=== PATIENT | female | born 1995 | race Caucasian/White ===

== ENCOUNTER 2016-09-05 17:51 | Emergency (ER) | payer OTHER ==
[~2016-09-05] VITALS: Ht 167.6 cm; Wt 61.2 kg
[~2016-09-05 17:51] MED LIST: ASCA500 PO; CYAN500T PO; PROM25TA9 PO
[2016-09-05 17:54] VITALS: TEMP 36.9; Ht 167.6 cm; Wt 61.2 kg
[2016-09-05] MEDS ORDERED: KETOROLAC TROMETHAMINE 30 MG/ML VIAL IV STA (18:24)
[2016-09-05] MEDS ORDERED: SODIUM CHLORIDE 0.9% 1000ML 1,000 ML IV STA (18:24)
[2016-09-05] MEDS ORDERED: WELLBUTRIN PO (18:35)
[2016-09-05 18:54] LABS: BASO % 0.5 %; BASO ABS # 0.03 K/uL (0-0.2); COMPLETE YES; EOS % 7.3 %; HEMATOCRIT 38.7 % (37-47); IG% 0.2 %; LYMPH % 32.7 %; LYMPH ABS # 1.83 K/uL (1.2-3.4); MEAN CELL VOLUME 84.7 fL (80-100); MEAN CORPUSCULAR HEMOGLOBIN 28.4 pg (25-34); MEAN CORPUSCULAR HGB CONC 33.6 g/dl (32-36); MEAN PLATELET VOLUME 10.7 fL (7.4-10.4); MONO % 8.4 %; NEUT % 50.9 %; PLATELET COUNT 235 K/uL (130-400); RED BLOOD COUNT 4.57 M/uL (4.2-5.4)
[2016-09-05 19:04] LABS: URINE APPEARANCE CLEAR (CLEAR); URINE BILIRUBIN NEG (NEG); URINE COLOR YELLOW; URINE NITRITE NEG (NEG); URINE PH 6.5 (4.5-7.5); UROBILINOGEN NEG (NEG); ZZUR CULT IF INDIC CLEAN CATCH NO
[2016-09-05 19:09] LABS: MANUAL MICROSCOPIC REQUIRED? NO; REVIEW REQ? NO
[2016-09-05 19:13] LABS: BUN/CREATININE RATIO 9.2 (10-20); CALCIUM 9.1 mg/dl (8.5-10.1); CREATININE 1.1 mg/dl (0.60-1.20)
[2016-09-05 19:16] LABS: ALB/GLOB RATIO 1.2 (0.9-2)
--- NOTE | 2016-09-05 20:18 | DIAGNOSTIC IMAGING REPORT ---
PELVIC ULTRASOUND CLINICAL HISTORY: Severe pelvic pain. Positive test. COMPARISON STUDY: Pelvic ultrasound July 28, 2015. TECHNIQUE: Transabdominal and transvaginal sonography of the pelvis was performed. FINDINGS: The uterus measures 7.2 x 3.8 x 5.1 cm. The endometrium measures 1.1 cm in thickness. No intrauterine gestational sac is identified. Trace fluid is noted within the pelvis. The right ovary measures 4.4 x 2 x 2.2 cm and contains a 2.4 cm hypoechoic lesion with increased vascularity of the adjacent ovarian tissue. This suggests a corpus luteal cyst. The left ovary is normal, measuring 2.4 x 1.6 x 1.5 cm. Color flow is identified within each ovary. IMPRESSION: 1. No intrauterine gestational sac identified. Endometrial thickness of 1.1 cm. Given the positive test, differential considerations include a normal early intrauterine , missed spontaneous and sonographically occult ectopic . Close clinical follow-up, including serial beta hCG levels, is recommended. 2. 2.4 cm right ovarian lesion suggestive of a corpus luteal cyst. 3. Small amount of simple appearing fluid within the pelvis. Electronically signed by: Lazaro Monroy M.D. 09/05/2016 8:17 PM Dictated Date/Time: 09/05/2016 8:11 PM
--- NOTE | 2016-09-05 21:14 | EMERGENCY ROOM VISIT NOTE ---
History First contact with patient: 18:09 Chief Complaint: PELVIC PAIN Stated Complaint: SEVERE PELVIC PAIN History of Present Illness The patient is a 21 year old female who presents to the Emergency Room with complaints of severe pelvic pain for the past few days. The patient states that she has had a dull pain in her lower abdomen with movement and bending over for the past few days. She states she has had ovarian cysts in the past and this feels similar to previous episodes of ovarian cysts. She rates her discomfort an 8/10. She does report increased frequency of urination, but denies other urinary symptoms. She denies any unusual vaginal discharge or bleeding. Her last menstrual period was 4 weeks ago. She states she has made an appointment with [facility], but has not had seen them. She denies any nausea, vomiting, chest pain, shortness of breath, fevers or chills. Review of Systems A complete 10-point Review of Systems was discussed with the patient, with pertinent positives and negatives listed in the History of Present Illness. All remaining Review of Systems questions can be considered negative unless otherwise specified. Past Medical/Surgical History Medical Problems: (1) Abdominal pain (2) Abdominal pain (3) Abdominal pain (4) Cervicitis (5) Flank pain (6) Increased urinary frequency (7) Kidney stones (8) Kidney stones (9) Ovarian cyst (10) Pelvic pain (11) Renal colic on left side (12) Right ovarian cyst (13) Right ovarian cyst (14) Tick bite (15) Urinary tract infection (16) UTI (urinary tract infection) Surgical Problems: (1) History of appendectomy Family History Cancer Diabetes mellitus Hypertension Kidney disease Kidney stones Social History Smoking Status: Light Tobacco Smoker Alcohol Use: none Marital Status: in relationship Housing Status: lives with significant other Occupation Status: unemployed Current/Historical Medications Scheduled [Wellbutrin], 1 TAB PO BID Allergies Coded Allergies: Penicillins (Verified Allergy, Unknown, ., 09/05/16) Physical Exam Vital Signs Date Time Temp Pulse Resp B/P Pulse Ox O2 Delivery O2 Flow Rate FiO2 09/05/16 21:18 78 18 120/63 100 09/05/16 20:05 83 20 122/58 96 Room Air 09/05/16 17:54 36.9 88 17 124/75 100 Room Air Physical Exam VITALS: Vitals are noted on the nurse's note and reviewed by myself. Vital signs stable. GENERAL: This is a 21-year-old female, in no acute distress, nondiaphoretic, well-developed well-nourished. SKIN: Capillary reflex less than 2 seconds. HEENT: Normocephalic. PERRLA. EOMI. Nares patent. Mucous membranes moist. Neck is supple without nuchal rigidity. HEART: Regular rate and rhythm without murmurs gallops or rubs. LUNGS: Clear to auscultation bilaterally without wheezes, rales or rhonchi. ABDOMEN: Positive bowel sounds x 4. Soft, nontender to palpation. PELVIC: Small amount of whitish discharge within the vaginal vault. Cervical os is closed. No bleeding. NEURO: Patient was alert and oriented to person place and time. Medical Decision & Procedures ER Provider Diagnostic Interpretation: PELVIC ULTRASOUND CLINICAL HISTORY: Severe pelvic pain. Positive test. COMPARISON STUDY: Pelvic ultrasound July 28, 2015. TECHNIQUE: Transabdominal and transvaginal sonography of the pelvis was performed. FINDINGS: The uterus measures 7.2 x 3.8 x 5.1 cm. The endometrium measures 1.1 cm in thickness. No intrauterine gestational sac is identified. Trace fluid is noted within the pelvis. The right ovary measures 4.4 x 2 x 2.2 cm and contains a 2.4 cm hypoechoic lesion with increased vascularity of the adjacent ovarian tissue. This suggests a corpus luteal cyst. The left ovary is normal, measuring 2.4 x 1.6 x 1.5 cm. Color flow is identified within each ovary. IMPRESSION: 1. No intrauterine gestational sac identified. Endometrial thickness of 1.1 cm. Given the positive test, differential considerations include a normal early intrauterine , missed spontaneous and sonographically occult ectopic . Close clinical follow-up, including serial beta hCG levels, is recommended. 2. 2.4 cm right ovarian lesion suggestive of a corpus luteal cyst. 3. Small amount of simple appearing fluid within the pelvis. Laboratory Results 09/05/16 18:48 Red Blood Count 4.57, Mean Corpuscular Volume 84.7, Mean Corpuscular Hemoglobin 28.4, Mean Corpuscular Hemoglobin Concent 33.6, Mean Platelet Volume 10.7, Neutrophils (%) (Auto) 50.9, Lymphocytes (%) (Auto) 32.7, Monocytes (%) (Auto) 8.4, Eosinophils (%) (Auto) 7.3, Basophils (%) (Auto) 0.5, Neutrophils # (Auto) 2.85, Lymphocytes # (Auto) 1.83, Monocytes # (Auto) 0.47, Eosinophils # (Auto) 0.41, Basophils # (Auto) 0.03 09/05/16 18:48 Test 09/05/16 18:45 09/05/16 18:48 09/05/16 18:53 Human Chorionic Gonadotropin, Quant 344 mIU/mL White Blood Count 5.60 K/uL (4.8-10.8) Red Blood Count 4.57 M/uL (4.2-5.4) Hemoglobin 13.0 g/dL (12.0-16.0) Hematocrit 38.7 % (37-47) Mean Corpuscular Volume 84.7 fL (80-100) Mean Corpuscular Hemoglobin 28.4 pg (25-34) Mean Corpuscular Hemoglobin Concent 33.6 g/dl (32-36) Platelet Count 235 K/uL (130-400) Mean Platelet Volume 10.7 fL (7.4-10.4) Neutrophils (%) (Auto) 50.9 % Lymphocytes (%) (Auto) 32.7 % Monocytes (%) (Auto) 8.4 % Eosinophils (%) (Auto) 7.3 % Basophils (%) (Auto) 0.5 % Neutrophils # (Auto) 2.85 K/uL (1.4-6.5) Lymphocytes # (Auto) 1.83 K/uL (1.2-3.4) Monocytes # (Auto) 0.47 K/uL (0.11-0.59) Eosinophils # (Auto) 0.41 K/uL (0-0.5) Basophils # (Auto) 0.03 K/uL (0-0.2) RDW Standard Deviation 40.4 fL (36.4-46.3) RDW Coefficient of Variation 13.1 % (11.5-14.5) Immature Granulocyte % (Auto) 0.2 % Immature Granulocyte # (Auto) 0.01 K/uL (0.00-0.02) Anion Gap 6.0 mmol/L (3-11) Est Creatinine Clear Calc Drug Dose 75.7 ml/min Estimated GFR () 83.1 Estimated GFR (Non- 71.7 BUN/Creatinine Ratio 9.2 (10-20) Calcium Level 9.1 mg/dl (8.5-10.1) Total Bilirubin 0.4 mg/dl (0.2-1) Aspartate Amino Transf (AST/SGOT) 7 U/L (15-37) Alanine Aminotransferase (ALT/SGPT) 15 U/L (12-78) Alkaline Phosphatase 65 U/L (45-117) Total Protein 7.5 gm/dl (6.4-8.2) Albumin 4.1 gm/dl (3.4-5.0) Globulin 3.4 gm/dl (2.5-4.0) Albumin/Globulin Ratio 1.2 (0.9-2) Urine Color YELLOW Urine Appearance CLEAR (CLEAR) Urine pH 6.5 (4.5-7.5) Urine Specific Venus 1.020 (1.000-1.030) Urine Protein NEG (NEG) Urine Glucose (UA) NEG (NEG) Urine Ketones NEG (NEG) Urine Occult Blood NEG (NEG) Urine Nitrite NEG (NEG) Urine Bilirubin NEG (NEG) Urine Urobilinogen NEG (NEG) Urine Leukocyte Esterase NEG (NEG) Urine Test POS (NEG) Medications Administered Medications (Trade) Dose Ordered Sig/[place] Route Start Time Stop Time Status Last Admin Dose Admin Sodium Chloride (Nss 1000ml) 1,000 ml @ 999 mls/hr Q1H1M STAT IV 09/05/16 18:24 09/05/16 19:24 DC 09/05/16 18:59 999 MLS/HR Medical Decision Differential diagnosis includes ovarian cyst, ovarian torsion, ectopic , appendicitis, urinary tract infection, PID, gastroenteritis, among others. The patient was evaluated as above. Labs were drawn and IV access was obtained. Imaging studies were performed and read by radiology as above. The patient was medicated with 1 L normal saline solution. The patient was reassessed multiple times during their stay in the emergency department and remained in stable condition. The patient is a 21-year-old female who presents today complaining of pelvic pain. Labs revealed no leukocytosis, anemia or concerning electrolyte abnormalities. Urinalysis was not suggestive of infection. Urine was positive. Patient was informed of her positive test. As she has been complaining of pelvic pain, an ultrasound was also performed. Ultrasound was read by radiology and showed findings consistent with an early , but could not rule out miscarriage or ectopic . Beta hCG was 344. The patient will need to 48 hour follow-up. She was informed of this. I did speak with case management, who will arrange follow-up with [facility]. The patient is unable to make that appointment, she will return here for repeat ultrasound and beta-hCG. She will return sooner for worsening symptoms. Based on the patient's presentation, lab results, and imaging studies, I feel the patient is stable for outpatient treatment. The patient's case was reviewed with Dr. Barrett, ED attending physician, who agreed with my assessment and treatment plan. Discharge instructions were reviewed with the patient. The patient verbalized understanding of my assessment and treatment plan and was discharged home in good condition. Impression Primary Impression: Pelvic pain Additional Impression: Departure Information Dispostion Home / Self-Care Condition GOOD Referrals Pablo Waterman, D.O. (PCP) Saturnino Sierra MD Patient Instructions My [facility] Additional Instructions You had a positive test today. You do need a follow-up with [facility] in 48 hours for further testing. If they are not able to see you in 48 hours, you should return to the emergency department for follow-up. Tylenol as needed for pain. You should begin taking a vitamin. Return to the emergency room with any worsening abdominal pain, vaginal bleeding , or any other new/concerning symptoms. Problem Qualifiers Additional Impression: Weeks of gestation: less than 8 weeks Qualified Codes: Z3A.01 - Less than 8 weeks gestation of
[2016-09-05 21:18] VITALS: BP 120/63; PULSE 78; O2SAT 100
--- NOTE | 2016-09-08 14:34 | Pharmacy Progress Note ---
ED Pharmacist Culture FollowUp Date of Service: Sep 08, 2016. Called Armen Salmeron at , spoke with [employer] nurse. Informed of genital culture results. RN noted that she would inform physician of results and that they would take care of any/all follow-up as required. Confirmed that they had access to the [facility] system and could view the specifics and therefore did not fax.
== END 2016-09-05 21:18 | disposition home or self-care (01) ==
LOC: C.EDB 17:53 → C.EDA 21:18
DX: R10.2 Pelvic and perineal pain (principal); Z32.01 Encounter for pregnancy test, result positive; Z3A.01 Less than 8 weeks gestation of pregnancy; Z87.442 Personal history of urinary calculi; N72 Inflammatory disease of cervix uteri; Z84.1 Family history of disorders of kidney and ureter; F17.210 Nicotine dependence, cigarettes, uncomplicated

== ENCOUNTER 2016-09-21 16:30 | Emergency (ER) | payer OTHER ==
[~2016-09-21] VITALS: Ht 167.6 cm; Wt 59.8 kg
[~2016-09-21 16:30] MED LIST changes: -ASCA500 PO; -CYAN500T PO; -PROM25TA9 PO; +WELLBUTRIN PO
[2016-09-21 16:32] VITALS: TEMP 36.8; Ht 167.6 cm; Wt 59.8 kg
[2016-09-21] MEDS ORDERED: SODIUM CHLORIDE 0.9% 1000ML 2,000 ML IV STA (16:37)
[2016-09-21] MEDS ORDERED: PRENTAB26 PO (16:59)
[2016-09-21] MEDS ORDERED: ONDANSETRON 8 MG/54 ML D5W IV STA (17:06)
[2016-09-21 17:18] LABS: BASO % 0.3 %; BASO ABS # 0.02 K/uL (0-0.2); COMPLETE YES; EOS % 1.8 %; IG% 0.1 %; LYMPH ABS # 1.33 K/uL (1.2-3.4); MEAN CELL VOLUME 83.5 fL (80-100); MEAN CORPUSCULAR HEMOGLOBIN 28.8 pg (25-34); MEAN CORPUSCULAR HGB CONC 34.5 g/dl (32-36); MONO % 10.6 %; NEUT % 69.2 %; PLATELET COUNT 233 K/uL (130-400); RED BLOOD COUNT 4.55 M/uL (4.2-5.4); WHITE BLOOD COUNT 7.38 K/uL (4.8-10.8)
[2016-09-21 17:35] LABS: ALT/SGPT 46 U/L (12-78); AST/SGOT 28 U/L (15-37); BLOOD UREA NITROGEN 11 mg/dl (7-18); BUN/CREATININE RATIO 12.4 (10-20); CALCIUM 9.2 mg/dl (8.5-10.1); CARBON DIOXIDE 26 mmol/L (21-32); CHLORIDE 105 mmol/L (98-107); CREATININE 0.88 mg/dl (0.60-1.20); GLUCOSE 97 mg/dl (70-99); POTASSIUM 3.4 mmol/L (3.5-5.1); SODIUM 138 mmol/L (136-145)
[2016-09-21 17:37] LABS: ALKALINE PHOSPHATASE 58 U/L (45-117)
--- NOTE | 2016-09-21 19:44 | DIAGNOSTIC IMAGING REPORT ---
FIRST TRIMESTER ULTRASOUND CLINICAL HISTORY: Vomiting, early . US 09/13 5w 3d gest sac no pole COMPARISON STUDY: ultrasound September 05, 2016. TECHNIQUE: Transabdominal and transvaginal sonography of the pelvis was performed. FINDINGS: An intrauterine gestational sac is noted. Mean sac diameter is 2.15 cm. A pole is noted which measures 0.41 cm. This has cardiac activity with a heart rate of 117 bpm. Estimated gestational age on this exam is 6 weeks and 1 day. In addition, there is a hyperechoic structure adjacent to the pole that measures 0.53 cm. This contains no cardiac activity. This is indeterminate. A normal-appearing yolk sac is not visualized. The right ovary measures 2.5 x 4.6 x 2.2 cm and contains a 2.6 cm suspected corpus luteal cyst. The left ovary measures 2.9 x 1.6 x 1.8 cm. IMPRESSION: 1. Intrauterine gestational sac identified which contains a pole with normal heart rate of 117 bpm. Estimated gestational age is 6 weeks and 1 day. 2. In addition, there is a hyperechoic structure adjacent to the pole that measures 0.53 cm which contains no cardiac activity. This finding is indeterminate and differential considerations include an abnormal appearing yolk sac or an additional intrauterine gestation. Viability cannot be assessed given the early age of . Short-term sonographic follow up is recommended. 3. No normal-appearing yolk sac identified. This is an abnormal but indeterminate finding and should be assessed on subsequent study. 4. Right ovarian corpus luteal cyst. Electronically signed by: Lazaro Monroy M.D. 09/21/2016 7:43 PM Dictated Date/Time: 09/21/2016 7:36 PM
[2016-09-21 21:20] LABS: URINE APPEARANCE CLEAR (CLEAR); URINE BILIRUBIN NEG (NEG); URINE COLOR YELLOW; URINE NITRITE NEG (NEG); URINE SPECIFIC GRAVITY 1.016 (1.000-1.030); UROBILINOGEN NEG (NEG)
[2016-09-21 21:25] LABS: MANUAL MICROSCOPIC REQUIRED? NO; REVIEW REQ? NO
[2016-09-21] MEDS ORDERED: ONDA4TAB10 SL (22:00)
[2016-09-21] MEDS ORDERED: ONDANSETRON HOME PACK 4MG OD TAB PO ONE (22:00)
[2016-09-21 22:26] VITALS: BP 121/71; PULSE 67; O2SAT 98
--- NOTE | 2016-09-22 01:23 | EMERGENCY ROOM VISIT NOTE ---
History Report prepared by Reji: Butch Funez Under the Supervision of: Dr. Deejay Gleason M.D. First contact with patient: 16:37 Chief Complaint: VOMITING Stated Complaint: EXCESSIVE VOMITING, DIZZY History of Present Illness The patient is a 21 year old female who presents to the Emergency Room with complaints of constant nausea and vomiting for the past four days. The patient states that she is currently 6 weeks , and she has been vomiting 15 times per day, and it has been green. She additionally is complaining of abdominal pain, back pain, and intermittent headaches. The patient states that she has been trying many different things, however nothing has worked. The patient states that she came to the ED in August, and she was told to follow up with OB at [facility]. She states that she was following up, and she states that her hormone levels were normal and her ultrasounds were normal. The patient additionally states that she has a history of ovarian cysts. She states that she has another ultrasound appointment on 09/27. Pt denies LOC, fevers, chills, diaphoresis, visual changes, neck pain, chest pain, breathing difficulties, melena, hematochezia, urinary symptoms, vaginal bleeding and discharge, numbness, weakness, lymphadenopathy, rash, or other complaints. Source of History: patient Onset: four days ago Position: other (global) Quality: other (nausea and vomiting) Timing: constant Associated Symptoms: + abdominal pain, + back pain, + headache Review of Systems See HPI for pertinent positives and negatives. A total of ten systems were reviewed and were otherwise negative. Past Medical & Surgical Medical Problems: (1) Abdominal pain (2) Abdominal pain (3) Abdominal pain (4) Cervicitis (5) Flank pain (6) Increased urinary frequency (7) Kidney stones (8) Kidney stones (9) Ovarian cyst (10) Pelvic pain (11) Renal colic on left side (12) Right ovarian cyst (13) Right ovarian cyst (14) Tick bite (15) Urinary tract infection (16) UTI (urinary tract infection) Surgical Problems: (1) History of appendectomy Family History Cancer Diabetes mellitus Hypertension Kidney disease Kidney stones Social History Smoking Status: Never Smoker Alcohol Use: none Marital Status: in relationship Housing Status: lives with significant other Occupation Status: unemployed Current/Historical Medications Scheduled Multivit/Min/Iron/Fol Ac/Pren ( Vitamin), 1 TAB PO DAILY Ondasetron Odt (Zofran Odt), 4 MG SL Q6H Allergies Coded Allergies: Penicillins (Verified Allergy, Unknown, ., 09/05/16) Physical Exam Vital Signs Date Time Temp Pulse Resp B/P Pulse Ox O2 Delivery O2 Flow Rate FiO2 09/21/16 22:26 67 14 121/71 98 09/21/16 20:15 83 14 97/58 99 Room Air 09/21/16 19:32 66 12 90/60 100 Room Air 09/21/16 18:04 60 09/21/16 17:56 66 19 92/50 100 Room Air 09/21/16 16:32 36.8 92 18 126/76 99 Room Air Physical Exam GENERAL: Awake, alert, well-appearing, in no distress HENT: Normocephalic, atraumatic. Oropharynx unremarkable. EYES: Normal conjunctiva. Sclera non-icteric. NECK: Supple. No nuchal rigidity. FROM. No JVD. RESPIRATORY: Clear to auscultation. CARDIAC: Regular rate, normal rhythm. Extremities warm and well perfused. Pulses equal. ABDOMEN: Mild left and right lateral abdominal tenderness. Soft, non-distended. No rebound or guarding. No masses. RECTAL: Deferred. MUSCULOSKELETAL: Chest examination reveals no tenderness. The back is symmetrical on inspection without obvious abnormality. There is no CVA tenderness to palpation. No joint edema. LOWER EXTREMITIES: Calves are equal size bilaterally and non-tender. No edema. No discoloration. NEURO: Normal sensorium. No sensory or motor deficits noted. SKIN: No rash or jaundice noted. Medical Decision & Procedures ER Provider Diagnostic Interpretation: US results as stated below per my review and radiologist interpretation: FIRST TRIMESTER ULTRASOUND CLINICAL HISTORY: Vomiting, early . US 09/13 5w 3d gest sac no pole COMPARISON STUDY: ultrasound September 05, 2016. TECHNIQUE: Transabdominal and transvaginal sonography of the pelvis was performed. FINDINGS: An intrauterine gestational sac is noted. Mean sac diameter is 2.15 cm. A pole is noted which measures 0.41 cm. This has cardiac activity with a heart rate of 117 bpm. Estimated gestational age on this exam is 6 weeks and 1 day. In addition, there is a hyperechoic structure adjacent to the pole that measures 0.53 cm. This contains no cardiac activity. This is indeterminate. A normal-appearing yolk sac is not visualized. The right ovary measures 2.5 x 4.6 x 2.2 cm and contains a 2.6 cm suspected corpus luteal cyst. The left ovary measures 2.9 x 1.6 x 1.8 cm. IMPRESSION: 1. Intrauterine gestational sac identified which contains a pole with normal heart rate of 117 bpm. Estimated gestational age is 6 weeks and 1 day. 2. In addition, there is a hyperechoic structure adjacent to the pole that measures 0.53 cm which contains no cardiac activity. This finding is indeterminate and differential considerations include an abnormal appearing yolk sac or an additional intrauterine gestation. Viability cannot be assessed given the early age of . Short-term sonographic follow up is recommended. 3. No normal-appearing yolk sac identified. This is an abnormal but indeterminate finding and should be assessed on subsequent study. 4. Right ovarian corpus luteal cyst. Electronically signed by: Lazaro Monroy M.D. 09/21/2016 7:43 PM Dictated Date/Time: 09/21/2016 7:36 PM Laboratory Results 09/21/16 16:52 Red Blood Count 4.55, Mean Corpuscular Volume 83.5, Mean Corpuscular Hemoglobin 28.8, Mean Corpuscular Hemoglobin Concent 34.5, Mean Platelet Volume 11.0, Neutrophils (%) (Auto) 69.2, Lymphocytes (%) (Auto) 18.0, Monocytes (%) (Auto) 10.6, Eosinophils (%) (Auto) 1.8, Basophils (%) (Auto) 0.3, Neutrophils # (Auto ) 5.11, Lymphocytes # (Auto) 1.33, Monocytes # (Auto) 0.78, Eosinophils # (Auto ) 0.13, Basophils # (Auto) 0.02 09/21/16 16:52 Test 09/21/16 16:52 09/21/16 21:00 White Blood Count 7.38 K/uL (4.8-10.8) Red Blood Count 4.55 M/uL (4.2-5.4) Hemoglobin 13.1 g/dL (12.0-16.0) Hematocrit 38.0 % (37-47) Mean Corpuscular Volume 83.5 fL (80-100) Mean Corpuscular Hemoglobin 28.8 pg (25-34) Mean Corpuscular Hemoglobin Concent 34.5 g/dl (32-36) Platelet Count 233 K/uL (130-400) Mean Platelet Volume 11.0 fL (7.4-10.4) Neutrophils (%) (Auto) 69.2 % Lymphocytes (%) (Auto) 18.0 % Monocytes (%) (Auto) 10.6 % Eosinophils (%) (Auto) 1.8 % Basophils (%) (Auto) 0.3 % Neutrophils # (Auto) 5.11 K/uL (1.4-6.5) Lymphocytes # (Auto) 1.33 K/uL (1.2-3.4) Monocytes # (Auto) 0.78 K/uL (0.11-0.59) Eosinophils # (Auto) 0.13 K/uL (0-0.5) Basophils # (Auto) 0.02 K/uL (0-0.2) RDW Standard Deviation 39.1 fL (36.4-46.3) RDW Coefficient of Variation 12.9 % (11.5-14.5) Immature Granulocyte % (Auto) 0.1 % Immature Granulocyte # (Auto) 0.01 K/uL (0.00-0.02) Anion Gap 7.0 mmol/L (3-11) Est Creatinine Clear Calc Drug Dose 94.6 ml/min Estimated GFR () 108.9 Estimated GFR (Non- 93.9 BUN/Creatinine Ratio 12.4 (10-20) Calcium Level 9.2 mg/dl (8.5-10.1) Total Bilirubin 0.4 mg/dl (0.2-1) Direct Bilirubin < 0.1 mg/dl (0-0.2) Aspartate Amino Transf (AST/SGOT) 28 U/L (15-37) Alanine Aminotransferase (ALT/SGPT) 46 U/L (12-78) Alkaline Phosphatase 58 U/L (45-117) Total Protein 7.7 gm/dl (6.4-8.2) Albumin 4.0 gm/dl (3.4-5.0) Lipase 97 U/L (73-393) Human Chorionic Gonadotropin, Quant 94425 mIU/mL Urine Color YELLOW Urine Appearance CLEAR (CLEAR) Urine pH 6.0 (4.5-7.5) Urine Specific [place] 1.016 (1.000-1.030) Urine Protein NEG (NEG) Urine Glucose (UA) NEG (NEG) Urine Ketones 1+ (NEG) Urine Occult Blood NEG (NEG) Urine Nitrite NEG (NEG) Urine Bilirubin NEG (NEG) Urine Urobilinogen NEG (NEG) Urine Leukocyte Esterase NEG (NEG) Laboratory results reviewed by me Medications Administered Medications (Trade) Dose Ordered Sig/[place] Route Start Time Stop Time Status Last Admin Dose Admin Sodium Chloride (Nss 1000ml) 2,000 ml @ 999 mls/hr Q2H1M STAT IV 09/21/16 16:37 09/21/16 18:37 DC 09/21/16 17:51 999 MLS/HR Ondansetron HCl (Zofran 8mg Iv) 8 mg NOW STAT IV 09/21/16 17:06 09/21/16 17:08 DC 09/21/16 17:51 8 MG Ondansetron HCl (ZOFRAN ODT 4MG Home Pack) 1 homepack UD ONCE PO 09/21/16 22:00 09/21/16 22:01 DC 09/21/16 22:24 1 HOMEPACK ED Course 1702: The patient was evaluated in room A3. A complete history and physical exam was performed. 1706: Zofran 8mg IV 1723: I reviewed the patient's charts and saw her outpatient US results. They saw a gestational sack, and they told her to get a follow up US 2156: I reevaluated the patient. Discussed results and discharge instructions: She verbalized understanding and agreement. The patient is ready for discharge. 2200: Zofran ODT 4mg 1 Home Pack PO Medical Decision Prior records/ancillary studies reviewed. Triage Nursing notes reviewed and agree them. The patient's history was concerning for nausea, vomiting, and first trimester Differential diagnosis: Etiologies such as hyperemesis, ectopic, gastroenteritis, food borne illness, infections, appendicitis, diverticulitis, inflammatory bowel disease, GI bleed, biliary pathology, as well as others were entertained. Physical examination findings: The patient was examined. Her abdomen was benign. ER treatment provided: IV hydration 2 L NSS. Zofran On reassessment the patient felt significantly better. Patient was tolerating p.o. intake. Diagnostics interpretation by me: The labs revealed an unremarkable CBC and chemistry panel. Appropriate hCG serum measurement. Imaging studies: Ultrasound as above. The patient was informed of the findings especially about the possibility of a second gestation and a uterus. The patient had significant vomiting that was stopped with IV Zofran. She was hydrated and felt significantly better. Urinalysis was unremarkable. The patient has a follow-up with [facility] in about 5 days. I will prescribe her Zofran to use when necessary. I did discuss the risks and the benefits. I gave my usual and customary discussion regarding this issue. By the evaluation outlined above emergent etiologies such as appendicitis, diverticulitis, mesenteric ischemia, aortic pathology, inflammatory bowel disease, renal colic, PUD, biliary pathology, UTI, as well as others were deemed relatively unlikely. The patient was informed about the findings as listed above. All questions were answered and she was pleased with the treatment. Return instructions were outlined and the patient was discharged in stable condition. Outpatient prescription management: Zofran Referral: The patient was referred to her [facility] for follow-up for a recheck of the current condition. The chart was completed utilizing [employer] Speech voice recognition software. Grammatical errors, random word insertions, pronoun errors, and incomplete sentences are an occasional consequence of this system due to software limitations, ambient noise, and hardware issues. Any formal questions or concerns about the content, text, or information contained within the body of this dictation should be directly addressed to the physician for clarification. Impression Primary Impression: Vomiting Additional Impression: First trimester Scribe Attestation The scribe's documentation has been prepared under my direction and personally reviewed by me in its entirety. I confirm that the note above accurately reflects all work, treatment, procedures, and medical decision making performed by me. Departure Information Dispostion Home / Self-Care Prescriptions Ondasetron Odt (ZOFRAN ODT) 4 Mg Tab 4 MG SL Q6H for Nausea, #10 TAB 2 Refills Prov: Deejay Gleason MD 09/21/16 Referrals No Doctor, Assigned (PCP) Forms HOME CARE DOCUMENTATION FORM, IMPORTANT VISIT INFORMATION Patient Instructions My [facility] Additional Instructions VOMITING INSTRUCTIONS: Zofran(odansetron) tablets 4mg: Take one and allow it to dissolve in your mouth every four to six hours as needed for nausea or vomiting. Acetaminophen(Tylenol) may be used for fever or pain. Use 1000mg every six hours as needed. Avoid using more than 4000mg in a 24 hour period. Rest and drink plenty of fluids as tolerated. Slow sips of water or sports drinks are recommended instead of large amounts all at once. Continue current medications. Once your stomach is settled start with a clear liquid diet (jello, soup broth, etc.) and then advance as tolerated. You should avoid full, heavy meals for about 24 hrs from the time your symptoms resolved. Return to the ER for persistent vomiting, fevers, abdominal pain, chest pains, difficulty breathing, black or bloody stools, worsening of your condition, or as needed. Follow up with your [facility] [employer] physician as scheduled for a recheck of your current condition Problem Qualifiers
== END 2016-09-21 22:27 | disposition home or self-care (01) ==
LOC: C.EDB 16:31 → C.EDA 22:27
DX: O21.9 Vomiting of pregnancy, unspecified (principal); Z3A.01 Less than 8 weeks gestation of pregnancy; Z87.442 Personal history of urinary calculi; Z87.440 Personal history of urinary (tract) infections; Z79.899 Other long term (current) drug therapy

== ENCOUNTER 2017-04-13 13:14 | Outpatient (CLI) | payer OTHER ==
[~2017-04-13 13:14] MED LIST changes: +ONDA4TAB10 SL; +PRENTAB26 PO; -WELLBUTRIN PO
== END 2017-04-13 17:35 | disposition home or self-care (01) ==
LOC: C.LD 13:14 → C.OPB 13:14
PROVIDERS: ATTEND Obstetrics & Gynecology
DX: O26.853 Spotting complicating pregnancy, third trimester (principal); O26.893 Other specified pregnancy related conditions, third trimester; N89.8 Other specified noninflammatory disorders of vagina; Z3A.35 35 weeks gestation of pregnancy

== ENCOUNTER 2018-02-19 17:13 | Emergency (ER) | payer OTHER ==
[~2018-02-19] VITALS: Ht 167.6 cm; Wt 53.5 kg
[2018-02-19 17:21] VITALS: TEMP 36.9; Ht 167.6 cm; Wt 53.5 kg
--- NOTE | 2018-02-19 17:35 | EMERGENCY ROOM VISIT NOTE ---
History Report prepared by Reji: Manuelito Medina Under the Supervision of: Dr. Armin Jiang M.D. First contact with patient: 17:28 Chief Complaint: MENTAL HEALTH EVALUATION Stated Complaint: SUICIDAL THOUGHTS,CUTS ON ARM History of Present Illness The patient is a 23 year old female who presents to the Emergency Room with complaints of suicidal ideation and self harm. The patient explained that at the beginning of December her psychiatrist changed her medication doses by upping her Lexapro and decreasing her Klonopin causing her condition to worsen. The patient states that she cut herself on her arms with a razor blade and does not know when last tetanus shot was. She also reports a decrease in interest, concentration and appetite recently causing her to lose weight. The patient denies insomnia, guilt and attempting to overdose but does smoke cigarettes and marijuana. Source of History: patient Onset: Today Position: other (Generalized) Timing: worsening Modifying Factors (Worsening): other (not taking medications) Associated Symptoms: No LOC, No fevers, No chills, No headache, No diaphoresis, No sorethroat, No cough, No neck pain, No chest pain, No SOB, No nausea, No vomiting, No abdominal pain, No back pain, No melena, No hematochezia , No diarrhea, No urinary symptoms, No fatigue, No weakness, No numbness, No rash, No lymphadenopathy Review of Systems See HPI for pertinent positives and negatives. A total of ten systems were reviewed and were otherwise negative. Past Medical & Surgical Medical Problems: (1) 35 weeks gestation of (2) Abdominal pain (3) Abdominal pain (4) Abdominal pain (5) Cervicitis (6) Flank pain (7) Increased urinary frequency (8) Kidney stones (9) Kidney stones (10) Ovarian cyst (11) Pelvic pain (12) Renal colic on left side (13) Right ovarian cyst (14) Right ovarian cyst (15) Spotting affecting in third trimester (16) Tick bite (17) Urinary tract infection (18) UTI (urinary tract infection) (19) Vaginal discharge during in third trimester Surgical Problems: (1) History of appendectomy Family History Cancer Diabetes mellitus Hypertension Kidney disease Kidney stones Social History Smoking Status: Current Every Day Smoker Alcohol Use: none Drug Use: marijuana Marital Status: in relationship Housing Status: lives with significant other Occupation Status: unemployed Current/Historical Medications Scheduled Escitalopram Oxalate (Lexapro), 20 MG PO DAILY Scheduled PRN Clonazepam (Klonopin), 0.5 MG PO TID PRN for Anxiety/Agitation Allergies Coded Allergies: Penicillins (Verified Allergy, Unknown, ., 02/19/18) Physical Exam Vital Signs Date Time Temp Pulse Resp B/P (MAP) Pulse Ox O2 Delivery O2 Flow Rate FiO2 02/19/18 20:11 72 18 123/78 98 02/19/18 19:17 74 18 121/75 98 Room Air 02/19/18 17:21 36.9 68 18 122/76 96 Room Air Physical Exam Physical Exam GENERAL: She is oriented to person, place, and time. She appears well- developed and well-nourished. She does not appear distressed. HENT: Exam performed. Head: Normocephalic and atraumatic. Right Ear: External ear normal. No mastoid tenderness. Left Ear: External ear normal. No mastoid tenderness. Mouth/Throat: The oropharynx is clear and moist. No trismus in the jaw. No dental abscesses or uvula swelling. No oropharyngeal exudate or tonsillar abscesses. EYES: Conjunctivae and EOM are normal. Pupils are equal, round, and reactive to light. Right eye exhibits no discharge. Left eye exhibits no discharge. No scleral icterus. NECK: Normal range of motion. Neck supple. No JVD present. No spinous process tenderness present. No carotid bruit present. No rigidity. No tracheal deviation and normal range of motion present. No Brudzinski's sign and no Kernig 's sign noted. CV: Normal rate, regular rhythm, normal heart sounds and intact distal pulses. There is no peripheral edema. Palpable radial pulses bue. PULM/CHEST: Effort normal and breath sounds normal. No respiratory distress. No stridor. She has no wheezes. She has no rales. Chest Wall: She exhibits no tenderness. ABD: The abdomen is soft. Bowel sounds are normal. She has no distension. No mass is present. There is no tenderness. There is no rebound, no guarding, no Bah's sign and no tenderness at McBurney's point. Rovsig negative MUSC/SKEL: Normal range of motion. There is no peripheral edema, tenderness or deformity. LYMPH: No cervical adenopathy. NEURO: She is alert and oriented to person, place, and time. She has normal strength. No cranial nerve deficit or sensory deficit. Coordination and gait normal. GCS eye subscore is 4. GCS verbal subscore is 5. GCS motor subscore is 6. Cerebellar tests wnl. SKIN: Skin is warm and dry. She is not diaphoretic. ELIA has multiple abrasions with no active bleeding or erythema. PSYCH: She has a normal mood and affect. Behavior is normal. Judgment and thought content normal. Medical Decision & Procedures Laboratory Results 02/19/18 18:08 Red Blood Count 4.68, Mean Corpuscular Volume 81.4, Mean Corpuscular Hemoglobin 27.1, Mean Corpuscular Hemoglobin Concent 33.3, Mean Platelet Volume 11.0, Neutrophils (%) (Auto) 62.1, Lymphocytes (%) (Auto) 25.6, Monocytes (%) (Auto) 9.2, Eosinophils (%) (Auto) 2.6, Basophils (%) (Auto) 0.4, Neutrophils # (Auto) 5.00, Lymphocytes # (Auto) 2.06, Monocytes # (Auto) 0.74, Eosinophils # (Auto) 0.21, Basophils # (Auto) 0.03 02/19/18 18:08 Test 02/19/18 18:00 02/19/18 18:08 02/19/18 18:52 Bedside Glucose 91 mg/dl (70-90) White Blood Count 8.05 K/uL (4.8-10.8) Red Blood Count 4.68 M/uL (4.2-5.4) Hemoglobin 12.7 g/dL (12.0-16.0) Hematocrit 38.1 % (37-47) Mean Corpuscular Volume 81.4 fL (80-100) Mean Corpuscular Hemoglobin 27.1 pg (25-34) Mean Corpuscular Hemoglobin Concent 33.3 g/dl (32-36) Platelet Count 239 K/uL (130-400) Mean Platelet Volume 11.0 fL (7.4-10.4) Neutrophils (%) (Auto) 62.1 % Lymphocytes (%) (Auto) 25.6 % Monocytes (%) (Auto) 9.2 % Eosinophils (%) (Auto) 2.6 % Basophils (%) (Auto) 0.4 % Neutrophils # (Auto) 5.00 K/uL (1.4-6.5) Lymphocytes # (Auto) 2.06 K/uL (1.2-3.4) Monocytes # (Auto) 0.74 K/uL (0.11-0.59) Eosinophils # (Auto) 0.21 K/uL (0-0.5) Basophils # (Auto) 0.03 K/uL (0-0.2) RDW Standard Deviation 42.8 fL (36.4-46.3) RDW Coefficient of Variation 14.3 % (11.5-14.5) Immature Granulocyte % (Auto) 0.1 % Immature Granulocyte # (Auto) 0.01 K/uL (0.00-0.02) Anion Gap 7.0 mmol/L (3-11) Est Creatinine Clear Calc Drug Dose 88.0 ml/min Estimated GFR () 113.5 Estimated GFR (Non- 98.0 BUN/Creatinine Ratio 20.2 (10-20) Calcium Level 9.3 mg/dl (8.5-10.1) Total Bilirubin 0.3 mg/dl (0.2-1) Direct Bilirubin < 0.1 mg/dl (0-0.2) Aspartate Amino Transf (AST/SGOT) 13 U/L (15-37) Alanine Aminotransferase (ALT/SGPT) 21 U/L (12-78) Alkaline Phosphatase 73 U/L (45-117) Total Protein 7.6 gm/dl (6.4-8.2) Albumin 4.2 gm/dl (3.4-5.0) Thyroid Stimulating Hormone (TSH) 1.160 uIu/ml (0.300-4.500) Ethyl Alcohol mg/dL < 3.0 mg/dl (0-3) Urine Color YELLOW Urine Appearance CLEAR (CLEAR) Urine pH 7.0 (4.5-7.5) Urine Specific [place] 1.011 (1.000-1.030) Urine Protein NEG (NEG) Urine Glucose (UA) NEG (NEG) Urine Ketones NEG (NEG) Urine Occult Blood NEG (NEG) Urine Nitrite NEG (NEG) Urine Bilirubin NEG (NEG) Urine Urobilinogen NEG (NEG) Urine Leukocyte Esterase NEG (NEG) Urine Opiates Screen NEG (NEG) Urine Methadone, Qualitative NEG (NEG) Urine Barbiturates NEG (NEG) Urine Phencyclidine (PCP) Level NEG (NEG) Ur Amphetamine/Methamphetamine NEG (NEG) MDMA (Ecstasy) Screen NEG (NEG) Urine Benzodiazepines Screen NEG (NEG) Urine Cocaine Metabolite NEG (NEG) Urine Marijuana (THC) POS (NEG) Laboratory results reviewed by me ED Course 1731: The patient was evaluated in room A8. A complete history and physical exam was performed. 2015: Patient medically cleared. Wounds were irrigated and dressed. No need for laceration sustained superficial abrasions. Patient was seen and evaluated by psychiatry, cleared by psychiatry. Patient will follow up outpatient with mental health. DISCHARGE - Plan of care discussed with patient and questions answered. The patient was given both verbal and printed discharge instructions. The patient verbalized understanding and ability to comply. The patient is to seek outpatient follow up as noted in the discharge instructions. The patient verbalized understanding and ability to comply. The patient is discharged in stable condition. The patient was instructed to return for worsening symptoms. Medical Decision Patient medically cleared. Wounds were irrigated and dressed. No need for laceration sustained superficial abrasions. Patient was seen and evaluated by psychiatry, cleared by psychiatry. Patient will follow up outpatient with mental health. DISCHARGE - Plan of care discussed with patient and questions answered. The patient was given both verbal and printed discharge instructions. The patient verbalized understanding and ability to comply. The patient is to seek outpatient follow up as noted in the discharge instructions. The patient verbalized understanding and ability to comply. The patient is discharged in stable condition. The patient was instructed to return for worsening symptoms. Medication Reconcilliation Current Medication List: was personally reviewed by me Blood Pressure Screening Patient's blood pressure: Normal blood pressure Impression Primary Impression: Depression Additional Impression: Abrasion Scribe Attestation The scribe's documentation has been prepared under my direction and personally reviewed by me in its entirety. I confirm that the note above accurately reflects all work, treatment, procedures, and medical decision making performed by me. The chart was completed utilizing [employer] Speech voice recognition software. Grammatical errors, random word insertions, pronoun errors, and incomplete sentences are an occasional consequence of this system due to software limitations, ambient noise, and hardware issues. Any formal questions or concerns about the content, text, or information contained within the body of this dictation should be directly addressed to the physician for clarification. Departure Information Dispostion Home / Self-Care Referrals No Doctor, Assigned (PCP) Forms HOME CARE DOCUMENTATION FORM, IMPORTANT VISIT INFORMATION Patient Instructions My [facility] Problem Qualifiers Primary Impression: Depression Depression Type: unspecified Qualified Codes: F32.9 - Major depressive disorder, single episode, unspecified
[2018-02-19 18:19] LABS: BASO % 0.4 %; BASO ABS # 0.03 K/uL (0-0.2); EOS % 2.6 %; EOS ABS # 0.21 K/uL (0-0.5); HEMATOCRIT 38.1 % (37-47); HEMOGLOBIN 12.7 g/dL (12.0-16.0); IG# 0.01 K/uL (0.00-0.02); LYMPH % 25.6 %; LYMPH ABS # 2.06 K/uL (1.2-3.4); MEAN CELL VOLUME 81.4 fL (80-100); MEAN CORPUSCULAR HEMOGLOBIN 27.1 pg (25-34); MEAN CORPUSCULAR HGB CONC 33.3 g/dl (32-36); MONO % 9.2 %; MONO ABS # 0.74 K/uL (0.11-0.59); NEUT % 62.1 %; PLATELET COUNT 239 K/uL (130-400); RED CELL DISTRIBUTION WIDTH CV 14.3 % (11.5-14.5); RED CELL DISTRIBUTION WIDTH SD 42.8 fL (36.4-46.3); WHITE BLOOD COUNT 8.05 K/uL (4.8-10.8)
[2018-02-19] MEDS ORDERED: ESCI1TAB10 PO (18:23)
[2018-02-19] MEDS ORDERED: CLON0.5T9 PO (18:24)
[2018-02-19 18:53] LABS: ALBUMIN 4.2 gm/dl (3.4-5.0); ALKALINE PHOSPHATASE 73 U/L (45-117); ALT/SGPT 21 U/L (12-78); AST/SGOT 13 U/L (15-37); BLOOD UREA NITROGEN 17 mg/dl (7-18); CALCIUM 9.3 mg/dl (8.5-10.1); CARBON DIOXIDE 25 mmol/L (21-32); CREATININE 0.84 mg/dl (0.60-1.20); GLUCOSE 81 mg/dl (70-99); POTASSIUM 4.3 mmol/L (3.5-5.1); SODIUM 137 mmol/L (136-145); TOTAL PROTEIN 7.6 gm/dl (6.4-8.2)
[2018-02-19 20:11] VITALS: BP 123/78; PULSE 72; O2SAT 98
== END 2018-02-19 20:15 | disposition home or self-care (01) ==
LOC: C.EDB 17:15 → C.EDA 20:15
DX: F32.9 Major depressive disorder, single episode, unspecified (principal); T14.8XXA Other injury of unspecified body region, initial encounter; X58.XXXA Exposure to other specified factors, initial encounter; F17.200 Nicotine dependence, unspecified, uncomplicated; F12.90 Cannabis use, unspecified, uncomplicated; Z88.0 Allergy status to penicillin

== ENCOUNTER 2021-06-11 17:33 | Observation (INO) ==
[2021-06-11] MEDS ORDERED: ALUMINUM/MAGNESIUM/SIMETH (MAALOX MAX) 30 ML UDC PO PRN (17:55)
[2021-06-11] MEDS ORDERED: ACETAMINOPHEN 325 MG TAB PO PRN (17:55)
[2021-06-11 18:29] LABS: Appearance Urine Cloudy (Clear); Bacteria Urine Automated 4+ (Negative); Blood Urine 2+ (Negative); Color Urine Dark Yellow; Epithelial Cell Urine Auto >30 /lpf (0-5); Glucose Urine UA Negative (Negative); Ketones Urine 3+ (Negative); Leukocyte Esterase Urine 1+ (Negative); Nitrite Urine Positive (Negative); Protein Urine 1+ (Negative); Specific Gravity Urine 1.028 (1.000-1.030); Urobilinogen Urine Negative (Negative); pH Urine 5.5 (4.5-7.5)
[2021-06-11 18:33] LABS: Basophils # (auto) 0.02 K/uL (0-0.2); Basophils % (auto) 0.2 %; Hematocrit (blood only) 40.1 % (37-47); Hemoglobin 13.4 g/dL (12.0-16.0); Immature Granulocytes # (auto) 0.02 K/uL (0.00-0.02); Immature Granulocytes % (auto) 0.2 %; Lymphocytes # (auto) 1.23 K/uL (1.2-3.4); Lymphocytes % (auto) 12.7 %; Mean Corpuscular Hemoglobin 27.7 pg (25-34); Mean Corpuscular Hgb Conc 33.4 g/dL (32-36); Mean Corpuscular Volume 82.9 fL (80-100); Mean Platelet Volume 11.4 fL (7.4-10.4); Monocytes # (auto) 0.72 K/uL (0.11-0.59); Monocytes % (auto) 7.4 %; Neutrophils # (auto) 7.63 K/uL (1.4-6.5); Neutrophils % (auto) 78.5 %; Platelet Count 282 K/uL (130-400); RDW Coefficient of Variation 12.9 % (11.5-14.5); RDW Standard Deviation 39.3 fL (36.4-46.3); Red Blood Count 4.84 M/uL (4.2-5.4); White Blood Count 9.72 K/uL (4.8-10.8)
[2021-06-11] MEDS: D5W AND 1/2NSS 1,000 ML IV SCH (18:43)
[2021-06-11 18:48] LABS: Bilirubin Urine 2+ (Negative)
[2021-06-11 18:50] LABS: Amphetamines+Metham, Urine Neg (Neg); Barbiturates, Urine Neg (Neg); Benzodiazepine, Urine Neg (Neg); Cocaine, Urine Neg (Neg); MDMA (Ecstacy), Urine Neg (Neg); Methadone, Urine Neg (Neg); Opiate, Urine Neg (Neg); Phencyclidine, Urine Neg (Neg)
[2021-06-11 18:52] LABS: BUN Creatinine Ratio 14.8 (10-20); Calcium 9.8 mg/dl (8.5-10.1); Creatinine Clr Calc Pharmacy 99.8 ml/min; Est GFR (African American) 117.9 ml/min; Est GFR (Non-African American) 101.8 ml/min; Potassium 3.2 mmol/L (3.5-5.1)
[2021-06-11 19:02] LABS: Albumin Globulin Ratio 0.9 (0.9-2); Bilirubin,Total 1.1 mg/dl (0.2-1); Globulin 4.5 gm/dl (2.5-4.0); Thyroid Stimulating Hormone 0.035 uIu/ml (0.300-4.500); Total Protein 8.5 gm/dl (6.4-8.2)
[2021-06-11 19:03] LABS: Cast Urine Automated 0 /lpf (0-5)
[2021-06-11 19:16] LABS: T4 Free Thyroxine 1.93 ng/dl (0.8-1.6)
[2021-06-11] MEDS ORDERED: CALCIUM CARBONATE 500 MG CHEWABLE TAB PO PRN (20:01)
--- NOTE | 2021-06-11 20:01 | History & Physical Report ---
Date of Service June 11, 2021 Assessment & Plan (1) Nausea and vomiting during : (2) Bacteriuria during : (3) Hyperemesis gravidarum: Plan: 26-year-old -0-1-0 at 8 weeks of gestation per patient, unknown LMP, persistent nausea vomiting and unable to take anything by mouth, Vital signs stable afebrile, Feeling better after IV fluid was started without taking in any antinausea medications, Plan to admit for IV hydration, IV antiemetics, potassium and antibiotic for possible UTI. Urine culture will be obtained and labs will be repeated tomorrow Continue to monitor closely Admission and Anticipated Discharge Date Admission Date: June 11, 2021 History of Present Illness Primary Care Provider: Pablo Waterman DO Patient is a 26-year-old -0-1-0 at 8 weeks per her with unknown last period. She has been complaining of nausea and vomiting for the last 3 weeks. It has been getting worse and unable to take anything by mouth even a sip of water. She has been vomiting every half an hour for the last 2 days and felt dizzy and lightheaded and cold and wanted to come to the hospital. She is being admitted as a direct admission due to ER being full. She states her urine is dark and concentrated. She was told she has bacteria in her urine but never received treatment. She denies fever, chills, headaches, abdominal pain. She reports reflux. She has been trying Zofran and Diclegis for last few weeks but they do not seem to help. She has not had ultrasound or new OB visit yet. She has a history of recreational drug use but denies any drugs within the last month. She her urine test is positive for marijuana today. She is on Subutex 8 mg daily and Zoloft 25 mg at night. Allergies Allergy/AdvReac Type Severity Reaction Status Date / Time Penicillins Allergy Unknown HAPPENED Verified 06/04/21 10:42 A CHILD Home Medications Medication Instructions Recorded Confirmed Type doxylamine 20 mg-pyridoxine 20 mg 1 tab PO BID 06/04/21 06/11/21 History tablet,immediate and delayed release ([place]) ondansetron 4 mg disintegrating 4 mg PO Q8H PRN #10 tab 06/04/21 06/11/21 Rx tablet sertraline 25 mg tablet 25 mg PO HS 06/04/21 06/11/21 History Patient History Medical History (Updated 06/11/21 @ 19:59 by Crystal Segovia MD) Depression Kidney stones Kidney stones Migraine Ovarian cyst Right ovarian cyst Urinary tract infection Surgical History History of appendectomy Family History Other No significant family history Social History Smoking Status: Former smoker Tobacco Type: E-cigarettes / Vaping Cigarettes Per Day: 1/2 pack; Second Hand Exposure: No; Do You Dip or Chew Tobacco: No; Tobacco Cessation Education Requested by Patient: No Hx Substance Use: Yes Last Used Substance Other:: Last used in July 2020 Substance Use Type Other:: fentanyl Preferred Language: Ukrainian Communication Ability: Effective Family Worker Required: No Beliefs That Will Affect Care: None marital status: Single Current Living Situation: Alone Current Living Situation Comment: Son lives with dad current occupational status: employed Other Information That Helps Us Care for You: No Feels Safe at Home: Yes Assistive Devices: Glasses OB History Early spontaneous this year. Review of Systems as per Subjective / HPI, + fatigue, + anorexia and + weight loss (15 pounds per patient) + heartburn, + nausea and + vomiting Physical Exam Constitutional: + ill appearing and + frail appearing Gastrointestinal (Abdomen): normal bowel sounds, soft, nontender, no hepatosplenomegaly Genitourinary: Deferred Results & Data ([facility]) Vital Signs (Past 12 Hours) Vital Signs Temp Pulse Resp BP 06/11/21 18:10 36.7 C 67 18 123/67 Laboratory Results Lab Results 06/11/21 06/11/21 06/11/21 Range/Units 17:45 18:10 18:10 WBC (4.8-10.8) K/uL RBC (4.2-5.4) M/uL Hgb (12.0-16.0) g/dL Hct (37-47) % MCV (80-100) fL MCH (25-34) pg MCHC (32-36) g/dL RDW Std Deviation (36.4-46.3) fL RDW Coeff of [place] (11.5-14.5) % Plt Count (130-400) K/uL MPV (7.4-10.4) fL Immature Gran % (Auto) % Neut % (Auto) % Lymph % (Auto) % [place] % (Auto) % Eos % (Auto) % Baso % (Auto) % Neut # (Auto) (1.4-6.5) K/uL Lymph # (Auto) (1.2-3.4) K/uL [place] # (Auto) (0.11-0.59) K/uL Eos # (Auto) (0-0.5) K/uL Baso # (Auto) (0-0.2) K/uL Immature Gran # (Auto) (0.00-0.02) K/uL Sodium (136-145) mmol/L Potassium (3.5-5.1) mmol/L Chloride (98-107) mmol/L Carbon Dioxide (21-32) mmol/L Anion Gap (3-11) BUN (7-18) mg/dl Creatinine (0.6-1.2) mg/dl Est Cr Clr Drug Dosing ml/min Est GFR ( Amer) ml/min Est GFR (Non-Af Amer) ml/min BUN/Creatinine Ratio (10-20) Glucose (70-99) mg/dl Calcium (8.5-10.1) mg/dl Total Bilirubin (0.2-1) mg/dl AST (15-37) U/L ALT (12-78) Alkaline Phosphatase (45-117) U/L Total Protein (6.4-8.2) gm/dl Albumin (3.4-5.0) gm/dl Globulin (2.5-4.0) gm/dl Albumin/Globulin Ratio (0.9-2) Amylase (25-115) U/L Lipase (73-393) U/L TSH (0.300-4.500) uIu/ml Free T4 (0.8-1.6) ng/dl HCG, Quant mIU/ml Urine Color Dark Yellow Urine Appearance Cloudy A (Clear) Urine pH 5.5 (4.5-7.5) Ur Specific [place] 1.028 (1.000-1.030) Urine Protein 1+ H (Negative) Urine Glucose (UA) Negative (Negative) Urine Ketones 3+ H (Negative) Urine Blood 2+ H (Negative) Urine Nitrite Positive A (Negative) Urine Bilirubin 2+ H (Negative) Urine Urobilinogen Negative (Negative) Ur Leukocyte Esterase 1+ H (Negative) Urine WBC (Auto) 10-30 H (0-5) /hpf Urine RBC (Auto) 5-10 H (0-4) /hpf U Hyaline Cast (Auto) 0 (0-5) /lpf U Epithel Cells (Auto) >30 H (0-5) /lpf Urine Bacteria (Auto) 4+ H (Negative) Urine Opiates Screen Neg (Neg) Ur Methadone, Qual Neg (Neg) Urine Barbiturates Neg (Neg) Ur Phencyclidine (PCP) Neg (Neg) U Amphetamin/Meth Scrn Neg (Neg) MDMA (Ecstasy) Screen Neg (Neg) U Benzodiazepines Scrn Neg (Neg) Ur Cocaine Metabolite Neg (Neg) U Marijuana (THC) Screen Pos H (Neg) SARS-CoV-2, RNA, NAAT NEGATIVE (NEGATIVE) 06/11/21 06/11/21 06/11/21 Range/Units 18:16 18:16 18:16 WBC 9.72 (4.8-10.8) K/uL RBC 4.84 (4.2-5.4) M/uL Hgb 13.4 (12.0-16.0) g/dL Hct 40.1 (37-47) % MCV 82.9 (80-100) fL MCH 27.7 (25-34) pg MCHC 33.4 (32-36) g/dL RDW Std Deviation 39.3 (36.4-46.3) fL RDW Coeff of [place] 12.9 (11.5-14.5) % Plt Count 282 (130-400) K/uL MPV 11.4 H (7.4-10.4) fL Immature Gran % (Auto) 0.2 % Neut % (Auto) 78.5 % Lymph % (Auto) 12.7 % [place] % (Auto) 7.4 % Eos % (Auto) 1.0 % Baso % (Auto) 0.2 % Neut # (Auto) 7.63 H (1.4-6.5) K/uL Lymph # (Auto) 1.23 (1.2-3.4) K/uL [place] # (Auto) 0.72 H (0.11-0.59) K/uL Eos # (Auto) 0.10 (0-0.5) K/uL Baso # (Auto) 0.02 (0-0.2) K/uL Immature Gran # (Auto) 0.02 (0.00-0.02) K/uL Sodium 136 (136-145) mmol/L Potassium 3.2 L (3.5-5.1) mmol/L Chloride 103 (98-107) mmol/L Carbon Dioxide 27 (21-32) mmol/L Anion Gap 6.0 (3-11) BUN 12 (7-18) mg/dl Creatinine 0.80 (0.6-1.2) mg/dl Est Cr Clr Drug Dosing 99.8 ml/min Est GFR ( Amer) 117.9 ml/min Est GFR (Non-Af Amer) 101.8 ml/min BUN/Creatinine Ratio 14.8 (10-20) Glucose 90 (70-99) mg/dl Calcium 9.8 (8.5-10.1) mg/dl Total Bilirubin 1.1 H (0.2-1) mg/dl AST 70 H (15-37) U/L ALT 168 H (12-78) Alkaline Phosphatase 94 (45-117) U/L Total Protein 8.5 H (6.4-8.2) gm/dl Albumin 4.0 (3.4-5.0) gm/dl Globulin 4.5 H (2.5-4.0) gm/dl Albumin/Globulin Ratio 0.9 (0.9-2) Amylase 40 (25-115) U/L Lipase 109 (73-393) U/L TSH 0.035 L (0.300-4.500) uIu/ml Free T4 1.93 H (0.8-1.6) ng/dl HCG, Quant [id number] mIU/ml Urine Color Urine Appearance (Clear) Urine pH (4.5-7.5) Ur Specific [place] (1.000-1.030) Urine Protein (Negative) Urine Glucose (UA) (Negative) Urine Ketones (Negative) Urine Blood (Negative) Urine Nitrite (Negative) Urine Bilirubin (Negative) Urine Urobilinogen (Negative) Ur Leukocyte Esterase (Negative) Urine WBC (Auto) (0-5) /hpf Urine RBC (Auto) (0-4) /hpf U Hyaline Cast (Auto) (0-5) /lpf U Epithel Cells (Auto) (0-5) /lpf Urine Bacteria (Auto) (Negative) Urine Opiates Screen (Neg) Ur Methadone, Qual (Neg) Urine Barbiturates (Neg) Ur Phencyclidine (PCP) (Neg) U Amphetamin/Meth Scrn (Neg) MDMA (Ecstasy) Screen (Neg) U Benzodiazepines Scrn (Neg) Ur Cocaine Metabolite (Neg) U Marijuana (THC) Screen (Neg) SARS-CoV-2, RNA, NAAT (NEGATIVE)
[2021-06-11] MEDS: cephALEXin 500 MG CAP PO SCH (21:03)
[2021-06-11] MEDS: D5NSS + 20MEQ KCL 20 MEQ/1,000 ML BAG IV SCH (21:04)
--- NOTE | 2021-06-11 21:04 | Ultrasound Report ---
ULTRASOUND OF THE PELVIS CLINICAL HISTORY: . COMPARISON STUDY: Pelvic ultrasound dated 09/05/2016. TECHNIQUE: Real-time, grayscale, and color flow sonography of the pelvis is performed both transabdom inally and endovaginally. Images are reviewed in the transverse and longitudinal planes. The endovagi nal examination is performed for better assessment of the gestation and the adnexa. FINDINGS: Uterus: The uterus is normal in size and echotexture, measuring 10.0 x 6.8 x 7.3 cm. Gestation: There is a single live intrauterine gestation with a heart rate of 176 bpm. The crown-rump length measures 2.47 cm corresponding to an estimated age of 9 weeks 1 day. A normal yolk sac is valeria ntified. Ovaries: The ovaries are normal in size and morphology. The right ovary measures 2.8 x 1.5 x 1.9 cm a nd the left ovary measures 2.9 x 2.1 x 1.8 cm. A 2.2 cm corpus luteum is noted on the left. Additiona l small follicles are seen bilaterally. Normal Doppler waveforms are shown within both ovaries. Pelvis: There is no free fluid in the cul-de-sac. No concerning adnexal lesion is seen. IMPRESSION: 1. There is a single live intrauterine gestation with an estimated age of 9 weeks 1 day by crown-rump length measurement. 2. The ovaries are normal as visualized noting a corpus luteum on the left. ACT 112: Negative or not required by law. Electronically signed by: Travon Platt M.D. 06/11/2021 9:02 PM
[2021-06-11] MEDS: SERTRALINE HCL 50 MG TABLET PO SCH (21:06)
[2021-06-11 22:12] LABS: Appearance Urine Turbid (Clear); Bacteria Urine Automated 4+ (Negative); Blood Urine 2+ (Negative); Color Urine Dark Yellow; Epithelial Cell Urine Auto >30 /lpf (0-5); Glucose Urine UA 1+ (Negative); Ketones Urine 4+ (Negative); Leukocyte Esterase Urine Trace (Negative); Nitrite Urine Positive (Negative); Protein Urine Trace (Negative); RBC Urine Automated 0-4 /hpf (0-4); Specific Gravity Urine 1.033 (1.000-1.030); Urobilinogen Urine Negative (Negative); pH Urine 5.5 (4.5-7.5)
[2021-06-11 22:20] LABS: Bilirubin Urine 2+ (Negative)
[2021-06-11 22:46] LABS: Amorphous Sediment Urine Present (None Prsent)
[2021-06-11 22:49] LABS: Cast Urine Automated 0 /lpf (0-5); Mucus Urine Present (None Prsent)
[2021-06-12] MEDS: D5NSS + 20MEQ KCL 20 MEQ/1,000 ML BAG IV SCH ×3 (03:47→18:07)
[2021-06-12] MEDS: ONDANSETRON INJ 2 MG/ML 2 ML VIAL IV PRN ×3 (03:49→18:08)
[2021-06-12 08:22] LABS: Albumin Globulin Ratio 0.8 (0.9-2); Albumin Level 2.9 gm/dl (3.4-5.0); Bilirubin,Total 0.9 mg/dl (0.2-1); Calcium 8.5 mg/dl (8.5-10.1); Creatinine Clr Calc Pharmacy 128.7 ml/min; Est GFR (African American) 144.2 ml/min; Est GFR (Non-African American) 124.4 ml/min; Globulin 3.6 gm/dl (2.5-4.0); Potassium 3.9 mmol/L (3.5-5.1); Total Protein 6.5 gm/dl (6.4-8.2)
[2021-06-12] MEDS: cephALEXin 500 MG CAP PO SCH ×3 (08:33→21:06)
[2021-06-12] MEDS: buprenorphine HCL 8 MG SUBL SL SCH (08:34)
[2021-06-12 10:47] LABS: Basophils # (auto) 0.01 K/uL (0-0.2); Basophils % (auto) 0.1 %; Eosinophils # (auto) 0.15 K/uL (0-0.5); Eosinophils % (auto) 2.1 %; Hematocrit (blood only) 33.5 % (37-47); Hemoglobin 10.8 g/dL (12.0-16.0); Immature Granulocytes # (auto) 0.01 K/uL (0.00-0.02); Immature Granulocytes % (auto) 0.1 %; Lymphocytes # (auto) 1.42 K/uL (1.2-3.4); Lymphocytes % (auto) 20.2 %; Mean Corpuscular Hemoglobin 26.8 pg (25-34); Mean Corpuscular Volume 83.1 fL (80-100); Monocytes # (auto) 0.72 K/uL (0.11-0.59); Monocytes % (auto) 10.2 %; Neutrophils # (auto) 4.72 K/uL (1.4-6.5); Neutrophils % (auto) 67.3 %; Platelet Count 232 K/uL (130-400); RDW Standard Deviation 39.8 fL (36.4-46.3); Red Blood Count 4.03 M/uL (4.2-5.4); White Blood Count 7.03 K/uL (4.8-10.8)
[2021-06-12 11:07] LABS: Albumin Level 2.9 gm/dl (3.4-5.0); BUN Creatinine Ratio 12.3 (10-20); Calcium 8.6 mg/dl (8.5-10.1); Est GFR (African American) 148.3 ml/min; Est GFR (Non-African American) 127.9 ml/min
[2021-06-12 11:09] LABS: Albumin Globulin Ratio 0.9 (0.9-2); Bilirubin,Total 0.6 mg/dl (0.2-1); Globulin 3.4 gm/dl (2.5-4.0); Total Protein 6.3 gm/dl (6.4-8.2)
[2021-06-12 12:02] LABS: Mean Corpuscular Hgb Conc 32.2 g/dL (32-36)
[2021-06-12] MEDS: PROMETHAZINE HCL 12.5 MG in SODIUM CHLORIDE 0.9% 50 ML IV PRN ×2 (13:26→21:34)
[2021-06-12] MEDS: D5W AND 1/2NSS 1,000 ML IV SCH ×2 (18:26→18:27)
[2021-06-12] MEDS: SERTRALINE HCL 50 MG TABLET PO SCH (21:06)
[2021-06-13] MEDS: D5NSS + 20MEQ KCL 20 MEQ/1,000 ML BAG IV SCH ×3 (00:52→15:27)
[2021-06-13] MEDS: ONDANSETRON INJ 2 MG/ML 2 ML VIAL IV PRN (07:53)
[2021-06-13] MEDS: cephALEXin 500 MG CAP PO SCH ×2 (09:01→13:37)
[2021-06-13] MEDS: buprenorphine HCL 8 MG SUBL SL SCH (09:01)
[2021-06-13] MEDS: PROMETHAZINE HCL 12.5 MG in SODIUM CHLORIDE 0.9% 50 ML IV PRN (09:20)
[2021-06-13 11:38] LABS: Basophils # (auto) 0.01 K/uL (0-0.2); Basophils % (auto) 0.1 %; Eosinophils # (auto) 0.16 K/uL (0-0.5); Eosinophils % (auto) 2.2 %; Hematocrit (blood only) 34.1 % (37-47); Hemoglobin 10.9 g/dL (12.0-16.0); Immature Granulocytes # (auto) 0.01 K/uL (0.00-0.02); Immature Granulocytes % (auto) 0.1 %; Lymphocytes # (auto) 1.92 K/uL (1.2-3.4); Lymphocytes % (auto) 26.4 %; Mean Corpuscular Hemoglobin 27.3 pg (25-34); Mean Corpuscular Volume 85.5 fL (80-100); Mean Platelet Volume 11.3 fL (7.4-10.4); Monocytes # (auto) 0.67 K/uL (0.11-0.59); Monocytes % (auto) 9.2 %; Neutrophils # (auto) 4.49 K/uL (1.4-6.5); Platelet Count 228 K/uL (130-400); RDW Coefficient of Variation 13.2 % (11.5-14.5); RDW Standard Deviation 41.4 fL (36.4-46.3); Red Blood Count 3.99 M/uL (4.2-5.4); White Blood Count 7.26 K/uL (4.8-10.8)
--- NOTE | 2021-06-13 11:45 | Progress Note ---
Date of Service June 13, 2021 Assessment & Plan (1) Hyperemesis gravidarum: Plan: Pt doing well No Vomiting in 24 hrs On IV Zofran and Phenergan Plan Advance diet Start PO PO Zofran and Phenergan supp if pt tolerates PO meds will D/C c home Admission and Anticipated Discharge Date Admission Date: June 11, 2021 Results & Data ([facility]) Vital Signs (Past 12 Hours) Vital Signs Temp Pulse Resp BP Pulse Ox 06/13/21 07:45 36.8 C 63 16 95/57 L 96 06/13/21 00:00 36.7 C 55 L 16 117/70 99
[2021-06-13] MEDS ORDERED: PROMETHAZINE HCL 25 MG SUPP PR PRN (11:46)
[2021-06-13 11:58] LABS: Albumin Level 2.9 gm/dl (3.4-5.0); Calcium 8.6 mg/dl (8.5-10.1); Creatinine Clr Calc Pharmacy 144.4 ml/min; Est GFR (African American) 145.8 ml/min; Est GFR (Non-African American) 125.8 ml/min; Potassium 3.8 mmol/L (3.5-5.1)
[2021-06-13 12:01] LABS: Albumin Globulin Ratio 0.8 (0.9-2); Bilirubin,Total 0.5 mg/dl (0.2-1); Globulin 3.5 gm/dl (2.5-4.0); Total Protein 6.4 gm/dl (6.4-8.2)
[2021-06-13] MEDS: ONDANSETRON 4 MG OD TAB PO SCH ×2 (12:47→16:06)
--- NOTE | 2021-06-13 17:14 | Progress Note ---
Date of Service June 13, 2021 Assessment & Plan (1) Hyperemesis gravidarum: Plan: Pt doing well Tolerated Po food and meds ' D/c home with instrcutions Admission and Anticipated Discharge Date Admission Date: June 11, 2021 Results & Data ([facility]) Vital Signs (Past 12 Hours) Vital Signs Temp Pulse Resp BP Pulse Ox 06/13/21 15:05 36.8 C 71 14 125/56 L 95 06/13/21 07:45 36.8 C 63 16 95/57 L 96
[2021-06-14 14:31] LABS: Marijuana Quant, GCMS Urine 478 ng/mL (<5)
--- NOTE | 2021-06-30 15:09 | Discharge Summary (DS) ---
DATE OF ADMISSION: 06/11/2021 DATE OF DISCHARGE: 06/13/2021 CHIEF COMPLAINT: This is a 26-year-old G2, P0 who was 8 weeks , on 06/11/2021 was admitted f or hyperemesis. The patient has had continued worsening of nausea and vomiting and was unable to garland erate p.o. food and meds in the last 3 days. She was admitted and underwent IV hydration and antieme tic therapy. She did well and was discharged home eventually on 06/13/2021. PAST MEDICAL HISTORY: The patient has history of depression, history of renal stones, migraines and ovarian cyst. PAST SURGICAL HISTORY: The patient has history of appendectomy. SOCIAL HISTORY: The patient is a smoker, has history of marijuana use. Denies alcohol use or other drugs. ALLERGIES: No known drug allergies. REVIEW OF SYSTEMS: Negative except as dictated above. VITAL SIGNS: On the day of discharge, blood pressure 125/56, pulse of 71, respirations of 14, temper ature 36.8. CONDITION ON DISCHARGE: Stable. Vital signs on discharge as stated above was stable. TREATMENT DONE: The patient was admitted for hyperemesis and bacteriuria during . She rece ived IV fluid hydration, antiemetics, and antibiotics for her bacterial infection. DISCHARGE DIAGNOSES: 1. Hyperemesis gravidarum at 8 weeks. 2. Bacteriuria during . PLAN ON DISCHARGE: The patient is discharged home with instructions regarding activity, diet, follow up appointment and medications. Job ID: [id number]
== END 2021-06-13 18:25 | disposition home or self-care (01) | DRG 833 ==
LOC: OPB 17:33 → 4S2 17:35 → INTOOBSV 17:56 → 4S2 17:56